=== PATIENT | male | born 1940 | race Caucasian/White ===

== ENCOUNTER 2018-04-30 07:14 | Emergency (ER) | payer MEDICARE ==
[~2018-04-30] VITALS: Ht 190.5 cm; Wt 90.4 kg
[~2018-04-30 07:14] MED LIST: BENZ100C PO; BLOOD PRESSURE MED PO; CEFD300C37 PO; DOXY100C15 PO; [UNRECOGNIZED DRUG - CODE] PO
[2018-04-30 08:14] VITALS: BP 149/92
[2018-04-30] MEDS ORDERED: VALS160T3 PO (08:21)
[2018-04-30] MEDS ORDERED: CELE200C PO (08:21)
[2018-04-30] MEDS ORDERED: PROP150T2 PO (08:21)
[2018-04-30] MEDS ORDERED: ASPI-515 PO (08:21)
[2018-04-30] MEDS ORDERED: OMEP-110 PO (08:21)
[2018-04-30] MEDS ORDERED: AMLO10TA6 PO (08:21)
== END 2018-04-30 09:02 | disposition home or self-care (01) ==
LOC: ED 08:49
DX: K02.9 Dental caries, unspecified (principal)
CPT/HCPCS: 70100; 99284

== ENCOUNTER → 2018-06-01 | Outpatient (CLI) | payer MEDICARE ==
[~2018-06-01] MED LIST changes: +AMLO10TA6 PO; +AMOX1TAB64 PO; +ASPI-515 PO; +CELE200C PO; +OMEP-110 PO; +PROP150T2 PO; +VALS160T3 PO
== END | disposition home or self-care (01) ==
LOC: RAD 11:47
PROVIDERS: ATTEND Internal Medicine Infectious Disease
DX: Z45.2 Encounter for adjustment and management of vascular access device (principal); Z79.2 Long term (current) use of antibiotics; M27.2 Inflammatory conditions of jaws
CPT/HCPCS: 36569; 76937; 77001; C1751

== ENCOUNTER → 2018-06-14 | Outpatient (CLI) | payer MEDICARE ==
[~2018-06-14] MED LIST changes: +OMNIPAQUE 350 MG/ML, 75ML BOTTLE ONE
== END | disposition home or self-care (01) ==
LOC: CFH 13:48
PROVIDERS: ATTEND Internal Medicine Infectious Disease
DX: J84.10 Pulmonary fibrosis, unspecified (principal); D73.89 Other diseases of spleen; R91.1 Solitary pulmonary nodule
CPT/HCPCS: 71260; Q9967

== ENCOUNTER 2018-08-06 09:59 | Inpatient (IN) | payer MEDICARE ==
[2018-08-05 14:00] VITALS: BP 120/81
[~2018-08-06] VITALS: Ht 190.5 cm; Wt 93.0 kg
[~2018-08-06 09:59] MED LIST changes: -OMNIPAQUE 350 MG/ML, 75ML BOTTLE ONE
[2018-08-06] MEDS ORDERED: SODIUM CHLORIDE FLUSH 10ML SYR IVF ONE (11:00)
[2018-08-06 11:22] LABS: BASOPHILS # (AUTO) 0.04 x10^3/uL (0-0.1); BASOPHILS % (AUTO) 0 % (0-1); EOSINOPHILS # (AUTO) 0.19 x10^3/uL (0-0.4); EOSINOPHILS % (AUTO) 2 % (1-7); LYMPHOCYTES # (AUTO) 1.82 x10^3/uL (1-3.4); LYMPHOCYTES % (AUTO) 15 % (22-44); MD NO; MEAN CORPUSCULAR HEMOGLOBIN 32.4 pg (27.5-34.5); MEAN CORPUSCULAR HGB CONC 34.3 g/dL (33.2-36.2); MEAN CORPUSCULAR VOLUME 94.2 fL (81-97); MEAN PLATELET VOLUME 8.3 fL (7.4-10.4); MONOCYTES # (AUTO) 0.98 x10^3/uL (0.2-0.8); MONOCYTES % (AUTO) 8 % (2-9); NEUTROPHILS # (AUTO) 9.26 x10^3/uL (1.8-6.8); NEUTROPHILS % (AUTO) 75 % (42-75); PLATELET COUNT 324 x10^3/uL (130-400); RED BLOOD COUNT 3.37 x10^6/uL (4.38-5.82)
[2018-08-06 11:32] LABS: INTERNATIONAL NORMALIZED RATIO 0.98 (0.93-1.1); PROTHROMBIN TIME 10.4 Seconds (9.6-11.5)
[2018-08-06 11:33] LABS: ALANINE AMINOTRANSFERASE 19 U/L (12-78); ALBUMIN 3.7 g/dL (3.4-5.0); ANION GAP 8 mmol/L (5-15); CALCIUM 7.9 mg/dL (8.5-10.1); CHLORIDE 107 mmol/L (98-107); CREATININE 1.51 mg/dL (0.7-1.3)
[2018-08-06 11:35] LABS: ALKALINE PHOSPHATASE 105 U/L (45-117); BILIRUBIN,TOTAL 0.5 mg/dL (0.2-1.0); TOTAL PROTEIN 6.9 g/dL (6.4-8.2)
[2018-08-06] MEDS ORDERED: OMNIPAQUE 350 MG/ML, 100ML BOTTLE ONE (12:11)
--- NOTE | 2018-08-06 12:33 | NUR ---
PT/FAMILY UPDATED-WAITING ON CT RESULTS
[2018-08-06] MEDS ORDERED: SODIUM CHLORIDE 0.9% 1,000 ML IV ONE (12:55)
[2018-08-06] MEDS ORDERED: SODIUM CHLORIDE FLUSH 10ML SYR IVF PRN (13:00)
[2018-08-06 14:16] VITALS: BP 120/81
[2018-08-06] MEDS ORDERED: ONDANSETRON ODT 4 MG PO PRN (14:30)
[2018-08-06] MEDS ORDERED: ACETAMINOPHEN 325 MG TABLET PO PRN (14:30)
[2018-08-06] MEDS ORDERED: ONDANSETRON 2MG/ML, 2ML IVPush PRN (14:30)
[2018-08-06] MEDS ORDERED: FINA5TAB4 PO (14:54)
[2018-08-06] MEDS ORDERED: AMOX-291 PO ×2 (14:54→15:37)
[2018-08-06] MEDS ORDERED: GOLYTELY 4,000ML ORAL.SOL PO ONE (16:00)
[2018-08-06 19:00] VITALS: BP 124/70
[2018-08-06] MEDS ORDERED: AMOXICILLIN 500 MG CAPSULE PO SCH (21:00)
[2018-08-06] MEDS: SODIUM CHLORIDE 0.9% 1,000 ML IV SCH (21:00)
[2018-08-07] MEDS: AMOXICILLIN 500 MG CAPSULE PO SCH ×3 (00:03→23:58)
[2018-08-07 00:08] VITALS: BP 143/78
[2018-08-07 04:37] LABS: BASOPHILS # (AUTO) 0.05 x10^3/uL (0-0.1); BASOPHILS % (AUTO) 1 % (0-1); EOSINOPHILS # (AUTO) 0.32 x10^3/uL (0-0.4); EOSINOPHILS % (AUTO) 4 % (1-7); LYMPHOCYTES # (AUTO) 2.11 x10^3/uL (1-3.4); LYMPHOCYTES % (AUTO) 23 % (22-44); MD NO; MEAN CORPUSCULAR HEMOGLOBIN 32.6 pg (27.5-34.5); MEAN CORPUSCULAR HGB CONC 34.7 g/dL (33.2-36.2); MEAN PLATELET VOLUME 8.2 fL (7.4-10.4); MONOCYTES # (AUTO) 0.69 x10^3/uL (0.2-0.8); MONOCYTES % (AUTO) 8 % (2-9); NEUTROPHILS # (AUTO) 6.02 x10^3/uL (1.8-6.8); NEUTROPHILS % (AUTO) 65 % (42-75); PLATELET COUNT 254 x10^3/uL (130-400); RED BLOOD COUNT 2.79 x10^6/uL (4.38-5.82); RED CELL DISTRIBUTION WIDTH 13.8 % (9.4-14.8)
[2018-08-07 04:50] LABS: ALBUMIN 3.3 g/dL (3.4-5.0); ANION GAP 4 mmol/L (5-15); CALCIUM 8.1 mg/dL (8.5-10.1); CHLORIDE 108 mmol/L (98-107)
[2018-08-07 04:54] LABS: ALANINE AMINOTRANSFERASE 17 U/L (12-78); ALKALINE PHOSPHATASE 94 U/L (45-117); BILIRUBIN,TOTAL 0.6 mg/dL (0.2-1.0); CREATININE 1.28 mg/dL (0.7-1.3); TOTAL PROTEIN 6.1 g/dL (6.4-8.2)
[2018-08-07 06:57] VITALS: BP 122/74
[2018-08-07] MEDS ORDERED: PROPOFOL 10 MG/ML, 20ML ONE (11:17)
[2018-08-07] MEDS ORDERED: MIDAZOLAM 1 MG/ML, 2ML ONE (11:17)
[2018-08-07] MEDS ORDERED: FENTANYL PF 100 MCG/2ML ONE (11:17)
[2018-08-07] MEDS ORDERED: PROMETHAZINE 25 MG/ML, 1ML IV PRN (11:30)
[2018-08-07] MEDS ORDERED: hydrALAzine 20 MG/ML, 1ML IV PRN (11:30)
[2018-08-07] MEDS ORDERED: ONDANSETRON 2MG/ML, 2ML IV PRN (11:30)
[2018-08-07] MEDS ORDERED: FENTANYL PF 100 MCG/2ML IV PRN (11:30)
[2018-08-07] MEDS ORDERED: LABETALOL 5MG/ML, 20ML IV PRN (11:30)
[2018-08-07] MEDS: PROPAFENONE 150 MG TABLET PO SCH (12:57)
[2018-08-07] MEDS: OMEPRAZOLE 20 MG CAPSULE.DR PO SCH (12:57)
[2018-08-07] MEDS: FINASTERIDE 5 MG TABLET PO SCH (12:57)
[2018-08-07 13:15] VITALS: BP 122/86
[2018-08-07] MEDS: SODIUM CHLORIDE 0.9% 1,000 ML IV SCH ×3 (13:52→23:58)
[2018-08-07] MEDS ORDERED: GOLYTELY 4,000ML ORAL.SOL PO ONE (16:00)
[2018-08-07 19:58] VITALS: BP 143/81
[2018-08-08 04:11] VITALS: BP 125/75
[2018-08-08 04:53] LABS: BASOPHILS # (AUTO) 0.04 x10^3/uL (0-0.1); BASOPHILS % (AUTO) 1 % (0-1); EOSINOPHILS # (AUTO) 0.25 x10^3/uL (0-0.4); EOSINOPHILS % (AUTO) 4 % (1-7); LYMPHOCYTES # (AUTO) 1.61 x10^3/uL (1-3.4); LYMPHOCYTES % (AUTO) 27 % (22-44); MD NO; MEAN CORPUSCULAR HEMOGLOBIN 32.4 pg (27.5-34.5); MEAN CORPUSCULAR HGB CONC 34.5 g/dL (33.2-36.2); MEAN CORPUSCULAR VOLUME 93.9 fL (81-97); MONOCYTES # (AUTO) 0.57 x10^3/uL (0.2-0.8); MONOCYTES % (AUTO) 9 % (2-9); NEUTROPHILS % (AUTO) 59 % (42-75); PLATELET COUNT 226 x10^3/uL (130-400); RED CELL DISTRIBUTION WIDTH 14.1 % (9.4-14.8)
[2018-08-08 05:00] LABS: CHLORIDE 111 mmol/L (98-107)
[2018-08-08 05:05] LABS: ANION GAP 7 mmol/L (5-15); CALCIUM 8.1 mg/dL (8.5-10.1); CREATININE 1.06 mg/dL (0.7-1.3)
[2018-08-08 06:46] VITALS: BP 147/70
[2018-08-08] MEDS ORDERED: AMOXICILLIN 250 MG CAPSULE ONE (10:58)
[2018-08-08] MEDS: OMEPRAZOLE 20 MG CAPSULE.DR PO SCH (11:11)
[2018-08-08] MEDS: FINASTERIDE 5 MG TABLET PO SCH (11:12)
[2018-08-08] MEDS: AMOXICILLIN 500 MG CAPSULE PO SCH (12:10)
[2018-08-08] MEDS: PROPAFENONE 150 MG TABLET PO SCH (12:12)
[2018-08-08 12:43] VITALS: BP 145/77
[2018-08-08] MEDS: SODIUM CHLORIDE 0.9% 1,000 ML IV SCH (13:00)
[2018-08-08 14:56] VITALS: BP 120/69
== END 2018-08-08 16:05 | disposition home or self-care (01) | DRG 377 ==
LOC: ED 12:52 → EDIP 12:55 → 4NOR 13:35 → DCLOUNGE 08-08 15:57
PROVIDERS: ADMIT Hospitalist; ATTEND Hospitalist
PROC: 0DJD8ZZ Inspection of Lower Intestinal Tract, Via Natural or Artificial Opening Endoscopic (ICD-10-PCS; principal; 2018-08-07 10:45)
PROC: 0DBK8ZX Excision of Ascending Colon, Via Natural or Artificial Opening Endoscopic, Diagnostic (ICD-10-PCS; 2018-08-08)
DX: K57.31 Diverticulosis of large intestine without perforation or abscess with bleeding (principal); N17.0 Acute kidney failure with tubular necrosis; D62 Acute posthemorrhagic anemia; D68.59 Other primary thrombophilia; D72.829 Elevated white blood cell count, unspecified; R16.1 Splenomegaly, not elsewhere classified; D73.89 Other diseases of spleen; K21.9 Gastro-esophageal reflux disease without esophagitis; N28.1 Cyst of kidney, acquired; G89.29 Other chronic pain; K59.00 Constipation, unspecified; K44.9 Diaphragmatic hernia without obstruction or gangrene; I10 Essential (primary) hypertension; I48.0 Paroxysmal atrial fibrillation; M27.2 Inflammatory conditions of jaws
CPT/HCPCS: 36415; 74177; 80048; 80053; 82378; 85014; 85018; 85025; 85610; 85730; 86301; 86850; 86900; 88305; 93005; 99285; G0378; J2250; J2704; J3010; Q9967; J7030

== ENCOUNTER → 2018-09-07 | Outpatient (CLI) | payer MEDICARE ==
[~2018-09-07] MED LIST changes: -AMLO10TA6 PO; +AMLO10TA8 PO; +AMOX-291 PO; +FINA5TAB4 PO
== END | disposition home or self-care (01) ==
LOC: PETCFH 13:35
PROVIDERS: ATTEND Family Medicine
DX: N28.1 Cyst of kidney, acquired (principal); K44.9 Diaphragmatic hernia without obstruction or gangrene; K62.89 Other specified diseases of anus and rectum; D73.89 Other diseases of spleen; R16.1 Splenomegaly, not elsewhere classified
CPT/HCPCS: 78815; A9552

== ENCOUNTER 2019-05-29 11:19 | Outpatient (CLI) | payer MEDICARE ==
[2019-05-29] MEDS ORDERED: OMNIPAQUE 350 MG/ML, 100ML BOTTLE ONE (15:10)
== END 2019-05-29 23:59 | disposition home or self-care (01) ==
LOC: CFH 11:19
PROVIDERS: ATTEND Internal Medicine Hematology & Oncology
DX: D37.8 Neoplasm of uncertain behavior of other specified digestive organs (principal); D73.89 Other diseases of spleen; K44.9 Diaphragmatic hernia without obstruction or gangrene; K76.89 Other specified diseases of liver; N28.1 Cyst of kidney, acquired; N20.0 Calculus of kidney; M47.814 Spondylosis without myelopathy or radiculopathy, thoracic region
CPT/HCPCS: 74160; Q9967

== ENCOUNTER → 2020-04-23 | Outpatient (CLI) | payer MEDICARE ==
[2020-04-23 12:16] LABS: BASOPHILS # (AUTO) 0.02 x10^3/uL (0-0.1); BASOPHILS % (AUTO) 0 % (0-1); EOSINOPHILS # (AUTO) 0.25 x10^3/uL (0-0.4); EOSINOPHILS % (AUTO) 3 % (1-7); LYMPHOCYTES # (AUTO) 1.48 x10^3/uL (1-3.4); LYMPHOCYTES % (AUTO) 17 % (22-44); MD NO; MEAN CORPUSCULAR HEMOGLOBIN 33.7 pg (27.5-34.5); MEAN CORPUSCULAR HGB CONC 34.3 g/dL (33.2-36.2); MEAN CORPUSCULAR VOLUME 98.2 fL (81-97); MEAN PLATELET VOLUME 8.6 fL (7.4-10.4); MONOCYTES # (AUTO) 0.82 x10^3/uL (0.2-0.8); MONOCYTES % (AUTO) 9 % (2-9); NEUTROPHILS # (AUTO) 6.19 x10^3/uL (1.8-6.8); NEUTROPHILS % (AUTO) 71 % (42-75); PLATELET COUNT 291 x10^3/uL (130-400); RED BLOOD COUNT 4.33 x10^6/uL (4.38-5.82); RED CELL DISTRIBUTION WIDTH 12.6 % (9.4-14.8)
[2020-04-23 12:25] LABS: ALANINE AMINOTRANSFERASE 17 U/L (12-78); ANION GAP 7 mmol/L (5-15); CALCIUM 9.2 mg/dL (8.5-10.1); CHLORIDE 108 mmol/L (98-107)
[2020-04-23 12:27] LABS: ALKALINE PHOSPHATASE 79 U/L (45-117); BILIRUBIN,TOTAL 0.9 mg/dL (0.2-1.0); CREATININE 1.44 mg/dL (0.7-1.3); TOTAL PROTEIN 7.7 g/dL (6.4-8.2)
== END | disposition home or self-care (01) ==
LOC: LAB 11:42
PROVIDERS: ATTEND Internal Medicine Hematology & Oncology
DX: D73.89 Other diseases of spleen (principal); M86.20 Subacute osteomyelitis, unspecified site; D50.9 Iron deficiency anemia, unspecified; D37.8 Neoplasm of uncertain behavior of other specified digestive organs
CPT/HCPCS: 36415; 80053; 82232; 82784; 83615; 83883; 84155; 84165; 85025